=== PATIENT | male | born 1965 | race Two or more races ===

== ENCOUNTER 2019-08-06 13:26 | Outpatient (CLI) | payer MEDICAID ==
--- NOTE | 2019-08-06 16:45 | Consultation ---
DATE OF CONSULTATION: CONSULTING PHYSICIAN: Alden Tai M.D. CHIEF COMPLAINT: Rectal bleeding. HISTORY OF PRESENT ILLNESS: This is a 54-year-old male without any significant past medical history, complaining of some evidence of bleeding for last week or so. Denies any abdominal pain, nausea, vomiting, dysphagia, or odynophagia. PAST MEDICAL HISTORY: None. PAST SURGICAL HISTORY: None. MEDICATIONS: None. ALLERGIES: No known drug allergies. FAMILY HISTORY: No family history of GI malignancies. SOCIAL HISTORY: The patient denies any tobacco, alcohol, or drug abuse. REVIEW OF SYSTEMS: A 10-point review of systems was performed and pertinent positives in the HPI. PHYSICAL EXAMINATION: GENERAL: The patient is well-developed male, in no acute distress. HEENT: Normocephalic, atraumatic. Sclerae anicteric. NECK: Supple. No lymphadenopathy CARDIOVASCULAR: Regular rate and rhythm. Plus S1, S2. LUNGS: Clear to auscultation bilaterally. ABDOMEN: Positive bowel sounds. Soft and nontender. No rebound. No guarding. No peritoneal sign. EXTREMITIES: No cyanosis, no clubbing, no edema. ASSESSMENT AND PLAN: A 54-year-old male with rectal bleeding and GI bleeding, needs endoscopy and colonoscopy. The patient was given instruction for colonoscopy. The prep was explained to him. We are going to schedule him when authorization is obtained. Alden Tai M.D. DR: AUNDREA JOB#: [id number] CC:
== END 2019-08-06 15:26 | disposition home or self-care (01) ==
LOC: PAN 13:26
DX: K62.5 Hemorrhage of anus and rectum (principal)
CPT/HCPCS: G0463

== ENCOUNTER 2019-09-26 13:07 | Outpatient (CLI) | payer MEDICAID ==
--- NOTE | 2019-09-26 14:44 | General Progress Note ---
Assessment/Plan Assessment/Plan: EGD and colonoscopy reviewed Anusol HC prn repeat colon in 5 years Subjective ROS Limited/Unobtainable: Yes Allergies: Coded Allergies: No Known Allergies (Unverified , 08/07/19) Objective General Appearance: alert EENT: normal ENT inspection Neck: supple Cardiovascular: normal rate Respiratory/Chest: lungs clear Abdomen: normal bowel sounds, non tender, soft Alden Tai MD Sep 26, 2019 14:44
== END 2019-09-26 15:55 | disposition home or self-care (01) ==
LOC: PAN 13:07
DX: R10.9 Unspecified abdominal pain (principal)